=== PATIENT | male | born 1965 | race Asian ===

== ENCOUNTER 2024-01-27 14:59 | Emergency (ER) | payer BC, MEDICAID ==
[~2024-01-27] VITALS: Ht 170.2 cm; Wt 86.2 kg
[2024-01-27 15:14] VITALS: BP_SYST 194; PULSE 96; RESP 18; TEMP 97; O2SAT 97
[2024-01-27 15:18] VITALS: TEMP 97
[2024-01-27 15:40] LABS: BILIRUBIN,URINE NEGATIVE (NEGATIVE); BLOOD, URINE 1+ (NEGATIVE); CLARITY/URINE CLEAR (CLEAR); COLOR,URINE YELLOW (YELLOW); GLUCOSE,URINE NEGATIVE (NEGATIVE); KETONES,URINE NEGATIVE (NEGATIVE); LEUKOCYTE ESTERASE ,URINE NEGATIVE (NEGATIVE); NITRITE, URINE NEGATIVE (NEGATIVE); PROTEIN URINE NEGATIVE (NEGATIVE); UROBILINOGEN,URINE 0.2 (0.2-1.0)
[2024-01-27 15:52] LABS: BACTERIA,URINE None Seen /HPF (None Seen); MUCUS,URINE None Seen /LPF (None Seen); RBC,URINE NONE SEEN /HPF (0-3); WBC,URINE 0-3 /HPF (0-3)
[2024-01-27 15:53] LABS: BASOPHILS # (AUTO) 0.1 K/uL (0.0-0.2); BASOPHILS % (AUTO) 0.8 % (0.0-2.0); EOSINOPHILS # (AUTO) 0.9 K/uL (0.0-0.4); EOSINOPHILS % (AUTO) 8.8 % (0.0-4.0); HEMOGLOBIN 15.5 g/dL (14.0-18.0); LYMPHOCYTES # (AUTO) 1.9 K/uL (1.0-5.5); LYMPHOCYTES % (AUTO) 19.1 % (20.5-51.5); MEAN CORPUSCULAR HEMOGLOBIN 28 pg (27-31); MEAN CORPUSCULAR HGB CONC 34 % (32-36); MEAN CORPUSCULAR VOLUME 82 fL (79.0-98.0); MONOCYTES # (AUTO) 0.6 K/uL (0.0-1.0); MONOCYTES % (AUTO) 6.5 % (1.7-9.3); NEUTROPHILS # (AUTO) 6.3 K/uL (1.8-7.7); NEUTROPHILS % (AUTO) 64.8 % (40.0-70.0); PLATELET COUNT (AUTO) 304 K/uL (130-430); RED BLOOD CELL COUNT(AUTO) 5.59 MIL/uL (4.2-6.2); RED CELL DISTRIBUTION WIDTH 14.9 % (9.0-15.0); WHITE BLOOD COUNT (AUTO) 9.8 K/uL (4.8-10.8)
[2024-01-27 15:59] LABS: ALBUMIN 3.8 g/dL (3.4-4.8); BILIRUBIN,DIRECT 0.1 mg/dL (0.0-0.3); CREATININE 1.38 mg/dL (0.55-1.30); TOTAL BILIRUBIN 0.5 mg/dL (0.0-1.0); TOTAL PROTEIN, SERUM 8.2 g/dL (6.4-8.3)
[2024-01-27] MEDS: NACL 0.9% 1,000 ML IV ONE (16:00)
[2024-01-27] MEDS: ONDANSETRON HCL 4 MG/2 ML VIAL IVP ONE (16:17)
[2024-01-27] MEDS: KETOROLAC TROMETHAMINE 30 MG VIAL IVP ONE (16:18)
[2024-01-27] MEDS: MORPHINE 4 MG INJ. 4 MG/ML VIAL IVP ONE (16:18)
[2024-01-27] MEDS: TAMSULOSIN HCL 0.4 MG CAP PO ONE (17:18)
[2024-01-27] MEDS ORDERED: TAMSULOSIN HCL 0.4 MG CAP ONE (17:28)
[2024-01-27] MEDS ORDERED: TAMS-11 PO (18:25)
[2024-01-27] MEDS ORDERED: IBUP-1969 PO (18:25)
[2024-01-27 19:00] VITALS: BP_SYST 177; PULSE 95; RESP 14; O2SAT 92
== END 2024-01-27 19:00 | disposition home or self-care (01) ==
LOC: SED 14:59
DX: N20.0 Calculus of kidney (principal); N23 Unspecified renal colic; R61 Generalized hyperhidrosis; I10 Essential (primary) hypertension
CPT/HCPCS: 99285; 74176; 96374; 96375; 71045; 80076; 80048; 81001; 83880; 83690; 85025; 84484; 36415; 93005; J1885; J2405; J2270; 81000; 81015